=== PATIENT | male | born 1945 | race Caucasian/White ===

== ENCOUNTER 2019-03-15 10:05 | Emergency (ER) | payer MEDICARE ==
[~2019-03-15] VITALS: Ht 162.6 cm; Wt 59.1 kg
[2019-03-15 10:13] VITALS: Ht 162.6 cm; Wt 59.1 kg
[2019-03-15] MEDS ORDERED: ACETAMINOPHEN325 MG PO (10:15)
[2019-03-15] MEDS ORDERED: XANAX0.5 MG PO (10:16)
[2019-03-15] MEDS ORDERED: ALOPHEN PILLS5 MG PO (10:16)
[2019-03-15] MEDS ORDERED: DEPAKOTE SPRIN125 MG (10:18)
[2019-03-15] MEDS ORDERED: FERROUS SULFAT325 MG PO (10:20)
[2019-03-15] MEDS ORDERED: MILK OF MAGNESI30 ML PO (10:21)
[2019-03-15] MEDS ORDERED: PROZAC20 MG PO (10:21)
[2019-03-15] MEDS ORDERED: MELATONIN 3 MG1 TAB PO (10:21)
[2019-03-15] MEDS ORDERED: PROTONIX40 MG PO (10:22)
[2019-03-15] MEDS ORDERED: MYLANTA / MAALO30 ML PO (10:22)
[2019-03-15] MEDS ORDERED: CIMETIDINE200 MG PO (10:23)
[2019-03-15] MEDS ORDERED: FLOMAX0.4 MG PO (10:23)
[2019-03-15] MEDS ORDERED: ZOFRAN4 MG PO (10:23)
[2019-03-15] MEDS ORDERED: SYNTHROID137 MCG PO (10:23)
[2019-03-15] MEDS ORDERED: ULTRAM50 MG PO (10:23)
[2019-03-15 15:35] VITALS: BP 110/65
== END 2019-03-15 15:37 ==
LOC: D.ER 10:05
DX: S01.91XA Laceration without foreign body of unspecified part of head, initial encounter (principal); W19.XXXA Unspecified fall, initial encounter; G30.9 Alzheimer's disease, unspecified; F02.80 Dementia in other diseases classified elsewhere, unspecified severity, without behavioral disturbance, psychotic disturbance, mood disturbance, and anxiety; E03.9 Hypothyroidism, unspecified; J44.9 Chronic obstructive pulmonary disease, unspecified; Z87.891 Personal history of nicotine dependence